=== PATIENT | male | born 1960 | race Caucasian/White ===

== ENCOUNTER 2019-05-11 02:47 | Emergency (ER) | payer MEDICARE, MEDICAID ==
[~2019-05-11] VITALS: Ht 185.4 cm; Wt 72.7 kg
[2019-05-11] MEDS ORDERED: methylPREDNISolone sod succ 125mg/2ml vial IV ONE (02:55)
--- NOTE | 2019-05-11 02:59 | NUR ---
PT REFUSING IV START AND LAB DRAW AT THIS TIME " ALL I WANT IS RESP AND A BREATHING TREATMENT " DR SALAS CAME TO BEDSIDE TO ENCOURAGE PT TO HAVE AN IV STARTED AND GET LABS DRAWN. PT VERBALIZED " I WANT A BREATHING TREATMENT , THATS WHAT I NEED , THATS WHAT I AM HERE FOR "
[2019-05-11] MEDS ORDERED: ipratropium/albuterol 3ml nebule NEB ONE (03:00)
--- NOTE | 2019-05-11 03:07 | NUR ---
RESP THEREPY HERE TO GIVE PT A MED NEB TX
--- NOTE | 2019-05-11 03:11 | NUR ---
Refused ABG at this time.
--- NOTE | 2019-05-11 03:13 | NUR ---
RESP TREATMENT COMPLETE. PT STILL REFUSING IV START AT THIS TIME MD SALAS AWARE
[2019-05-11 03:25] VITALS: BP 161/105
--- NOTE | 2019-05-11 03:25 | NUR ---
ATTEMPTED TO DRAW PT LABS, AFTER HE AGREED TO ALLOWING A BLOOD DRAW. PT ASKING WHAT ALL THE TUBES ARE FOR EDUCATED PT ON WHAT LABS NEEDED TO BE DRAWN AND WHY. APPLIED TOURNAKET TO PATIENT ARM AND BEGAN CLEANSING DRAW SITE FOR BLOOD CULTURE. PT STATES " DO NOT POKE MY ELBOW" I CLEANSED HIS FOREARM AND AC AREA TO THE RIGHT ARM " DR SALAS ALSO AT BEDSIDE. " I TOLD U NOT TO GO THERE AT MY ELBOW" I REMOVED THE TOURNAKET AND ASKED THE PATIENT TO CHOOSE THE SITE HE WANTED TO BE DRAWN FROM SO I COULD CLEANSE IT. PT BEGAN TO VERBALLY RAISE HIS VOICE AND BECOME HOSTILE AND DECLINE THE DESIRE TO FOLLOW THROUGH WITH BLOOD DRAW. DR SALAS AWARE
--- NOTE | 2019-05-11 03:42 | NUR ---
Pt walked up to the nurses station and requested an AMA form. Pt signed form and left ER, Dr. hernandez aware.
== END 2019-05-11 03:39 | disposition left against medical advice (07) ==
LOC: ER 02:49
DX: J44.1 Chronic obstructive pulmonary disease with (acute) exacerbation (principal); K21.9 Gastro-esophageal reflux disease without esophagitis; Z87.11 Personal history of peptic ulcer disease; Z98.890 Other specified postprocedural states; Z88.2 Allergy status to sulfonamides; Z88.5 Allergy status to narcotic agent; Z88.1 Allergy status to other antibiotic agents; Z88.7 Allergy status to serum and vaccine
CPT/HCPCS: 71045; 93005; 94640; 94760; 99283; 99284